=== PATIENT | male | born 1960 | race Caucasian/White ===

== ENCOUNTER → 2018-07-06 | Outpatient (REF) ==
[2018-07-06 17:04] LABS: THYROID STIMULATING HORMONE 2.39 uIU/mL (0.465-4.680)
[2018-07-06 17:14] LABS: PSA-TOTAL 8.44 ng/mL (0-4)
== END ==
LOC: ZLAB.WCH 16:20
PROVIDERS: Internal Medicine
DX: Z01.89 Encounter for other specified special examinations (principal)
CPT/HCPCS: G0103

== ENCOUNTER → 2018-07-28 | Outpatient (CLI) | payer MEDICARE, MEDICAID | LOC: COL.LAB 13:30 | DX: Z01.89 Encounter for other specified special examinations (principal) ==

== ENCOUNTER 2018-09-29 12:29 | Day surgery (SDC) | payer MEDICARE, MEDICAID ==
[~2018-09-29] VITALS: Ht 175.3 cm; Wt 94.5 kg
[2018-09-29] VITALS (7 sets, daily range): BP systolic 134–140; BP diastolic 71–79; PULSE 84–103; TEMP 97.3–98.2
[2018-09-29] MEDS ORDERED: AMOXICILLIN 8751 TAB PO (13:37)
[2018-09-29] MEDS ORDERED: PERCOCET 325 MG1 TA2 PO (13:38)
[2018-09-29] MEDS ORDERED: MOTRIN 600600 MG/TAB PO (13:39)
--- NOTE | 2018-09-29 15:20 | NUR ---
Patient returns to room 4 per cart from PACU and is awake and alert. Temp 98.7 and sats 93% on 2L per nasal cannula. Scant bloody drainage from the mouth. Denies pain or nausea. Head of cart is elevated at 30 degrees. IV fluids infusing via 18G LH. Siderails up x2 and call light in reach. Allowed to rest.
--- NOTE | 2018-09-29 15:35 | NUR ---
Resting and sipping on Sprite. Offers no complaints of pain or nausea.
--- NOTE | 2018-09-29 15:50 | NUR ---
Room air sats 92% and resting with eyes closed. Head of cart elevated at 30 degrees.
--- NOTE | 2018-09-29 16:05 | NUR ---
Eating ice cream. Continues to deny pain or nausea. No bleeding noted from mouth.
--- NOTE | 2018-09-29 16:20 | NUR ---
Room air sats 94% and tolerated ice cream. Continues to deny pain or nausea. IV discontinued and assisted with dressing. Instructed to follow dismissal instructions that were provided to him by Dr. Miller's office prior to teeth extraction. Assisted into wheelchair.
--- NOTE | 2018-09-29 16:35 | NUR ---
Dismissal instructions signed and patient dismissed to home per private vehicle driven by friend and taken to the front door by wheelchair and assisted into car by RN with dismissal instructions in hand.
== END 2018-09-29 16:35 | disposition home or self-care (01) ==
LOC: SDCO 12:29
DX: K02.9 Dental caries, unspecified (principal); G80.9 Cerebral palsy, unspecified; F17.210 Nicotine dependence, cigarettes, uncomplicated; M46.1 Sacroiliitis, not elsewhere classified; M87.9 Osteonecrosis, unspecified; I87.2 Venous insufficiency (chronic) (peripheral)
CPT/HCPCS: J0295; J0330; J2250; J2704; J3010; J7120